=== PATIENT | male | born 1965 | race Caucasian/White ===

== ENCOUNTER → 2024-03-13 | Day surgery (SDC) | payer BC ==
[~2024-03-13] MED LIST: AMOX TR-K CLV1 EAC2 PO; BROMFED DM COU118 ML PO; DOXYCYCLINE HY100 MG PO; FENTANYL CITRATE/PF 100MCG/2 ML INJ ONE; HYOSCYAMINE SULFATE 0.5 MG/ML INJ ONE; LIDOCAINE HCL 2% LOCAL INJ 5 ML SDV VIAL INJ ONE; MIRTAZAPINE15 MG PO; PREDNISONE50 MG PO; PROPOFOL IV EMULSION 10 MG/ML 20 ML VIAL ONE; SERTRALINE HCL100 MG PO; TRICOR48 MG PO
[2024-03-13] MEDS: LACTATED RINGER'S 1,000 ML ONE (08:47)
[2024-03-13 09:45] VITALS: BP 133/86; PULSE 69; RESP 18; TEMP 97.3; O2SAT 97
== END | disposition home or self-care (01) ==
LOC: OR 07:00
PROVIDERS: ATTEND Internal Medicine Gastroenterology
DX: Z12.11 Encounter for screening for malignant neoplasm of colon (principal); D12.2 Benign neoplasm of ascending colon; D12.4 Benign neoplasm of descending colon; K57.30 Diverticulosis of large intestine without perforation or abscess without bleeding; K64.8 Other hemorrhoids; D64.9 Anemia, unspecified; K76.0 Fatty (change of) liver, not elsewhere classified; E78.5 Hyperlipidemia, unspecified; F32.A Depression, unspecified; Z01.812 Encounter for preprocedural laboratory examination; Z79.899 Other long term (current) drug therapy
CPT/HCPCS: 45385; 93005; J7121; 45378; J1980; J2001